=== PATIENT | female | born 1980 | race Caucasian/White ===

== ENCOUNTER 2016-08-11 08:00 | Outpatient (RCR) | payer BC ==
--- NOTE | 2016-05-19 13:17 | PT/OT/ST INITIAL EVALUATION ---
[facility]. PHYSICAL/OCCUPATIONAL THERAPY [address] [place] [id number] PLAN OF CARE/ASSESSMENT FOR OUTPATIENT REHABILITATION (Complete for Initial Claims Only) 1. PATIENT'S NAME Sade Heart 2. ACC. No [id number] 3. REFERRING PHYSICIAN Dr. Armen Bailey 4. PRIMARY DX 1. R10.2 female pelvic pain. 2. N94.19 female dyspareunia 3. N80.3 endometriosis 5. ONSET DATE Approximately 20 years ago, exacerbation approximately 3 years ago. 6. REFERRAL DATE 05/12/2016 7. SOC. DATE/TIME 05/19/2016 8. PRIOR LEVEL OF FUNCTION; PERTINENT HISTORY (Prior therapy results, reason for referral.) S: Prior to physical therapy examination the patient did consent to today's evaluation and treatment. This 35-year-old female is referred to physical therapy for evaluation and treatment of chronic pelvic pain and dyspareunia. The patient states that she has had chronic pain in her abdomen and pelvis since she was a teenager, approximately 20 years ago. The pain has been exacerbated during the and of her daughter, about 3 years ago. The patient states that the was unexpected, as she did not know she could become due to the endometriosis. She did have a traumatic childbirth experience, labored for over 40 hours. She did have epidural and episiotomy with sutures for the of her daughter. In the almost 3 years , her pelvic pain issues have become worse and worse. She has undergone multiple medical interventions for this symptom, including multiple types of hormonal control. She states she was placed into clinical menopause, but this did not remit her symptoms. She has a new prescription for a control formula, Reclipsen, which she is just starting today. Pain symptoms: The patient states that she has pain deep inside her abdomen and in her pelvis, including into the area of the buttocks. The pain is exacerbated with bearing weight on the right side of her hip girdle to sit. She rates this pain with sitting 7 to 8/10. She is unable to sleep on her right side due to her pain. The pain is exacerbated during and after intercourse, pain with both initial penetration and deep penetration. She rates the pain with intercourse 9/10, and states that she will have 3 days of exacerbated symptoms after sexual relations with her . The pain is cyclical, exacerbations during menstruation and ovulation. She states that she has light menstrual flow almost all the time. The pain is a major problem in her lift and interferes with her ability to care for her young daughter, to have relations with her to sustain sitting for travel and daily function. She states that she has occasional issues with urinary incontinence, occasional episodes of bowel constipation. She reports that she urinates frequently, often every hour. Surgical intervention shave included 3 laparoscopic surgeries, removal of endometrial tissue, also intervaginal laparoscopy, which included the finding of a rectocele. She has had occasional episodes of urinary tract infection, but does not feel this is currently an issue. She is not attempting a repeat , possibility of complete hysterectomy has been discussed. The patient states that she has frequently been active in exercising regularly, walking or running for exercise. Currently her high level of pain is interfering with her ability to do so. The patient has recently moved to [place] from [place]. She will be traveling intermittently over the next month to tie up [employer] in [facility] for her current relocation to [place], [place]. Prior level of function: Although the pain has been chronic in her life, she previously had less pain with sexual relations than what she is currently experiencing. Her current level of pain is interfering with her function with her daughter and relations with her . Therapy History: The patient has not received physical therapy interventions for this problem, is eager to find a non-pharmacological intervention for her symptoms. Obstacles to care: The patient's pain is chronic, unrelenting over the last 20 or so years, although current exacerbation is . The patient should be an excellent candidate for physical therapy interventions. Past medical history: The patient has been diagnosed with irritable bowel syndrome, endometriosis as a teenager, has had the 3 intraabdominal surgeries as noted above. Medication: The patient is starting a new oral control formula on this date. Oral control medications may affect vaginal tissue perfusion, which could possibly affect the efficacy of physical therapy manual interventions. Goal for therapy: The patient's goal for therapy is to decrease her pain and improve her ability to care for her daughter and have physical relations with her . 9. INITIAL ASSESSMENT/SAFETY PRECAUTIONS/MEDICAL COMPLICATIONS (Level of function at start of care. Be specific, use objective measures, list problems.) O: APPEARANCE AND OBSERVATION: The patient is a healthy appearing 35-year-old female, moderately underweight. She demonstrates normal external genitalia. As she sits in position with right leg crossed over left, indicates pain with weight bearing on the ischial tuberosity, right much greater than left. She also indicates pain into the pubis, right greater than left. She indicates pain through the lower abdominal area on both sides. PALPATION: The patient is tender to palpation with tightness and spasm noted, right greater than left levator ani, right greater than left iliopsoas and deep hip rotators. Pelvic floor musculature demonstrates poor coordination. She demonstrates good initial volitional activation of the levator ani strength 4/5 for initial activation. Endurance is poor, 1 to 2 seconds. Volitional control of pelvic floor relaxation of tone is poor. The patient is unaware of residual tone after she is asked to relax the musculature. The patient demonstrates painful intravaginal scarring at 4 o'clock, 7 o'clock, and 10 o'clock in the vaginal vault. She does demonstrate an increase in posterior wall laxity indicative of rectocele. RANGE OF MOTION/FLEXIBILITY: The patient demonstrates significant tightness in right greater than left hip girdle musculature, iliopsoas, deep hip rotators, levator ani muscles. The right hip capsule is tighter than the left. Right hip flexibility is 60% of left. 10. INITIAL POC: (Specify procedures, modalities, short and longterm goals) A: This patient presents to physical therapy with significant pelvic pain interfering with her function at home, caring for her young daughter, and relations with her . The pain level does limit her ability to physically active, including exercise for fitness. High level of pain also interferes with travel, which is required as she moves from home in [facility] to a home in [place]. Hypertonicity, painful scar, and poor volitional control of the hip girdle and pelvic floor musculature are major factors in her current symptoms. PROGNOSIS: The patient is an excellent candidate for conservative measures including physical therapy to address her current symptoms. She has a very good prognosis to accomplish the following goals, provided good patient's compliance and attendance. OUTCOME MEASURE: Pelvic Floor Distress Inventory Questionnaire: The patient scored 37/100, demonstrating 37% debility due to pelvic floor dysfunction at this time. PHYSICAL THERAPY GOALS: 1. In 8 weeks, the patient to demonstrate compliance with physical therapy exercises to address tightness in the hip girdle and pelvic floor musculature. 2. In 8 weeks, the patient to report 2/7 or greater on the global rating of perceived change scale, regarding her pelvic pain and function. 3. In 10 weeks the patient to demonstrate symmetric hip girdle musculature length and pelvic floor muscular flexibility, to decrease asymmetric pull on the pelvis. 4. In 20 weeks the patient to demonstrate improvement in pelvic floor function via pelvic Floor Distress Inventory Questionnaire score of 20% or less debility. 5. In 12 weeks, the patient to rate 5/7 or greater on the global rating of perceived change scale regarding pain and function with her pelvic area. INFORMED CONSENT: The physical therapy diagnosis, prognosis, treatment plan, risks, and expected outcomes were discussed with the patient on this date. The patient agrees to today's established physical therapy plan of care. PLAN: Plan to treat this patient in physical therapy 1 time per week for 20 weeks, with known absence when the patient is out of the are for traveling. Physical therapy interventions to address pelvic pain and dyspeurnia will include the application of modalities as needed to control pain, including possible ultrasound, iontophoresis, thermal therapy. Manual therapy including joint and soft tissue mobilization will be applied to improve symmetry, range of motion, and muscle tone. Therapeutic exercise with emphasis on the proper coordination of core musculature, pelvic floor musculature, and relating the proper volitional contraction and relaxation of these muscles to daily activities will be performed. 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 The patient has been issued a fairly extensive initial home exercise program on this date, as she will be unable to return to physical therapy for about 3 weeks. Her current home exercise program will be progressed throughout physical therapy plan of care as warranted. FREQUENCY: 1 time per week for 20 weeks. Thank you for the referral of this patient. 11. PHYSICIAN SIGNATURE ? ON FILE OR ENTER HERE: 12. DATE: I certify the need for these services furnished under this plan of care and if for partial hospitalization. 13. CERTIFICATION FROM THROUGH
== END 2016-08-17 | disposition home or self-care (01) ==
LOC: PT 08:00
PROVIDERS: ATTEND Obstetrics & Gynecology
DX: R10.2 Pelvic and perineal pain (principal); N94.19 Other specified dyspareunia; N80.3 Endometriosis of pelvic peritoneum; N92.1 Excessive and frequent menstruation with irregular cycle; K58.9 Irritable bowel syndrome, unspecified

== ENCOUNTER 2016-08-25 08:00 | Outpatient (RCR) | payer BC | END 2016-09-06 12:00 | disposition home or self-care (01) | LOC: PT 08:00 | PROVIDERS: ATTEND Obstetrics & Gynecology | DX: R10.2 Pelvic and perineal pain (principal); N94.19 Other specified dyspareunia; N80.3 Endometriosis of pelvic peritoneum; N92.1 Excessive and frequent menstruation with irregular cycle; K58.9 Irritable bowel syndrome, unspecified ==